=== PATIENT | female | born 1955 | race Caucasian/White ===

== ENCOUNTER → 2021-04-21 13:16 | Outpatient (BNVA) | payer MEDICARE, MEDICAID, SELFPAY | PROVIDERS: PCP Internal Medicine; Visit Provider Internal Medicine | DX: F10.10 Alcohol abuse, uncomplicated (principal); F03.90 Unspecified dementia, unspecified severity, without behavioral disturbance, psychotic disturbance, mood disturbance, and anxiety; F32.9 Major depressive disorder, single episode, unspecified | CPT/HCPCS: 80305; 99202 ==

== ENCOUNTER → 2021-09-28 09:17 | Outpatient (BNVA) | payer MEDICARE, MEDICAID, SELFPAY | PROVIDERS: PCP Internal Medicine; Visit Provider Psychiatry & Neurology Neurology | DX: F09 Unspecified mental disorder due to known physiological condition (principal); R26.9 Unspecified abnormalities of gait and mobility; Z91.81 History of falling | CPT/HCPCS: 99202 ==

== ENCOUNTER → 2021-11-09 14:42 | Outpatient (BNVA) | payer MEDICARE, MEDICAID, SELFPAY | PROVIDERS: PCP Internal Medicine; Visit Provider Nurse Practitioner Family | DX: M48.061 Spinal stenosis, lumbar region without neurogenic claudication (principal); R26.9 Unspecified abnormalities of gait and mobility; G89.4 Chronic pain syndrome; M25.551 Pain in right hip; M47.816 Spondylosis without myelopathy or radiculopathy, lumbar region; D17.79 Benign lipomatous neoplasm of other sites; Z91.81 History of falling | CPT/HCPCS: 99202 ==

== ENCOUNTER → 2022-03-09 15:03 | Outpatient (BNVA) | payer MEDICARE, MEDICAID, SELFPAY | PROVIDERS: PCP Internal Medicine; Visit Provider Nurse Practitioner Family | DX: M25.551 Pain in right hip (principal); M47.816 Spondylosis without myelopathy or radiculopathy, lumbar region; M48.061 Spinal stenosis, lumbar region without neurogenic claudication; G89.4 Chronic pain syndrome; E11.40 Type 2 diabetes mellitus with diabetic neuropathy, unspecified | CPT/HCPCS: 99212 ==

== ENCOUNTER 2022-03-23 11:00 | Outpatient (RCR) | payer MEDICARE, MEDICAID, SELFPAY ==
--- NOTE | 2021-12-11 12:25 | MHC.PT.EP ---
[facility] [place] [facility] [place] [facility] [place] [facility] [address] Loren Griffin [address] [phone] F: [phone] F: [phone] F: [phone] F: [phone] Physical Therapy Plan of Care Date of Evaluation: Date of Surgery: Diagnosis: gait disorder, falls, diabetic neuropathy lumbar spinal stenosis Assessment: 66 y/o female referred to PT with gait disorder, lumbar stenosis, falls, and diabetic neuropathy. Of note, PMH significant for COPD, HTN, DM, neuropathy, stenosis. She is awaiting a consult with neurosurgeon for lumbar spine. Currently she has pain and difficulty with walking, standing, learning manager, sleeping, and stairs. She tends to lose balance on stairs doing down. She just got a cane, but has not used it yet. Examination shows decreased lumbar and hip AROM, decreased LE/core strength, impaired balance, impaired gait pattern, and lacks foot clearance descending stairs. Recommend PT 2x/week for 5 weeks to address impairments, implement HEP, and optimize functional mobility. Educated pt on safety with dsecending stairs using rail and making sure she clears step fully. Frequency and Duration: The patient will be seen 2x/week for 5 weeks Short Term Goals: 3 weeks Compliant with HEP Pt will demonstrate improve stair navigation with clearing steps on descent Fci Goals: 5 weeks I with HEP and self management of sx Pt will improve B LE strength to 4/5 throughout to facilitate stairs Pt will demonstrate safety and appropriate use of assistive device with gait Treatment Plan: Modalities to reduce pain, spasms and effusion. Manual therapy to restore motion and function. Therapeutic exercise to improve strength and flexibility. Neuromuscular re-education for posture and balance. Therapeutic activities to return to functional activities of daily living. Electronically signed by: Agnieszka nascimento PT Please sign and return to therapist. Thank you for your referral.
--- NOTE | 2022-04-26 08:47 | MHC.PT.DC ---
[facility] [place] Office [place] Office [place] Office [address] Loren Griffin 140 [facility] [phone] F: [phone] F: [phone] F: [phone] F: [phone] Physical Therapy Discharge Report Diagnosis: gait disorder, falls, diabetic neuropathy lumbar spinal stenosis Date of Surgery: Date of Evaluation: 12/11/21 Date of Discharge: 04/26/22 Treatments to Date: 12 Cancellations to Date: 8 No Shows to Date: 2 Discharge Status: Improved Function Independent with HEP Discharge Summary: Pt has made gradual progress with strength, balance, and functional mobility. She has been limited by R hip pain and is going to have a cortisone injection. At this time, d/c to I HEP Electronically signed by: Agnisezka Squires PT Please sign and return to therapist. Thank you for your referral.
== END 2022-04-26 08:47 | disposition home or self-care (01) ==
LOC: HO.PTCHIC 11:00
PROVIDERS: PCP Internal Medicine; Visit Provider Psychiatry & Neurology Neurology
DX: M48.061 Spinal stenosis, lumbar region without neurogenic claudication (principal); R26.9 Unspecified abnormalities of gait and mobility; E11.40 Type 2 diabetes mellitus with diabetic neuropathy, unspecified; W19.XXXA Unspecified fall, initial encounter
CPT/HCPCS: 97110; 97112; 97162; 97530

== ENCOUNTER 2022-03-30 06:14 | Outpatient (REF) | payer MEDICARE, MEDICAID, SELFPAY ==
--- NOTE | ~2022-03-30 | FL_ITS ---
EXAMINATION: XR FLUOROSCOPY WITH IMAGES CLINICAL INFORMATION: Right hip pain. COMPARISON: None. TECHNIQUE: Fluoroscopy Supervised By: Dr. Sergio Wagner. Fluoroscopy Time: 0.1 minutes. Cumulative Dose: 4.47 mGy. DAP: 1.18 Gy-cm2. Images: 1. FINDINGS: Images demonstrate needle overlying the superior lateral aspect of the right hip joint with some contrast seen within the hip joint. FL/FL guidance in treatment room IMPRESSION: Fluoroscopy for pain management procedure.
== END 2022-03-30 06:15 | disposition home or self-care (01) ==
LOC: CF 06:14
PROVIDERS: Visit Provider Anesthesiology
DX: M25.551 Pain in right hip (principal); M47.816 Spondylosis without myelopathy or radiculopathy, lumbar region; M48.061 Spinal stenosis, lumbar region without neurogenic claudication; E11.40 Type 2 diabetes mellitus with diabetic neuropathy, unspecified; G89.4 Chronic pain syndrome
CPT/HCPCS: 20610; J3301

== ENCOUNTER → 2022-05-18 11:41 | Outpatient (BNVA) | payer MEDICARE, MEDICAID, SELFPAY | PROVIDERS: PCP Internal Medicine; Visit Provider Nurse Practitioner Family | DX: M25.551 Pain in right hip (principal); M47.816 Spondylosis without myelopathy or radiculopathy, lumbar region; M48.061 Spinal stenosis, lumbar region without neurogenic claudication; E11.40 Type 2 diabetes mellitus with diabetic neuropathy, unspecified; G89.4 Chronic pain syndrome | CPT/HCPCS: 99212 ==

== ENCOUNTER 2022-05-19 10:35 | Outpatient (REF) | payer MEDICARE, MEDICAID, SELFPAY ==
[2022-05-19 11:09] LABS: MANUAL DIFF FLAG NO
--- NOTE | 2022-05-19 11:10 | ECG_ITS ---
Test Reason : F10.20 Blood Pressure : / mmHG Vent. Rate : 076 BPM Atrial Rate : 076 BPM P-R Int : 142 ms QRS Dur : 088 ms QT Int : 400 ms P-R-T Axes : 072 059 061 degrees QTc Int : 450 ms Normal sinus rhythm Normal ECG No previous ECGs available Referred By: Piper Angelo Electronically Signed By:CARLITOS HILL
[2022-05-19 12:23] LABS: Basophils Absolute Auto 0.1 X10*3/uL (0.0-0.2); Basophils Percent Auto 0.7 % (0-2); Eosinophils Absolute Auto 0.2 X10*3/uL (0.0-0.4); Eosinophils Percent Auto 2.8 % (0-4); Hematocrit 39.2 % (37.0-47.0); Hemoglobin 12.9 g/dl (12.0-16.0); Imm Gran Abs Auto 0.04 X10*3/uL (0.00-0.03); Imm Gran Pct Auto 0.5 % (0.0-0.4); Lymphocytes Absolute Auto 2.9 X10*3/uL (1.2-4.9); Lymphocytes Percent Auto 35.9 % (20-40); Mean Corpuscular HGB Conc 32.9 g/dl (31.0-35.0); Mean Corpuscular Hemoglobin 33.1 pg (27.0-33.0); Mean Corpuscular Volume 100.5 fL (80.0-98.0); Mean Platelet Volume 9.2 fL (9.4-12.3); Monocytes Absolute Auto 0.6 X10*3/uL (0.1-1.2); Monocytes Percent Auto 6.9 % (2-11); Neutrophils Absolute Auto 4.3 x10*3/uL (2.0-8.3); Neutrophils Percent Auto 53.2 % (45-73); Platelet Count 395 X10*3/uL (160-400); Red Cell Distribution Width 12.5 % (11.0-16.0); White Blood Count 8.1 X10*3/uL (4.8-10.8)
[2022-05-19 12:55] LABS: Alanine Aminotransferase 15 U/L (0-31); Albumin Level 4.5 g/dL (3.5-5.0); Alkaline Phosphatase 63 U/L (39-117); Anion Gap 13 (12-20); Aspartate Amino Transferase 17 U/L (5-31); Bilirubin Direct < 0.2 mg/dL (0.0-0.5); Bilirubin Total 0.3 mg/dL (0.0-1.0); Blood Urea Nitrogen 11 mg/dL (9-16); Calcium 9.6 mg/dL (8.4-10.2); Carbon Dioxide 28 mmol/L (22-29); Chloride 107 mmol/L (96-108); Cholesterol 145 mg/dL; Estimated Glomerular Filt Rate > 60; Glucose Random 98 mg/dL (60-115); HDL Cholesterol 58 mg/dL; LDL Cholesterol Calculated 72 mg/dl; Potassium 4.4 mmol/L (3.3-5.1); Sodium 144 mmol/L (135-145); Total Protein 6.9 g/dL (6.5-8.0); Triglycerides 76 mg/dL
== END 2022-05-19 10:36 | disposition home or self-care (01) ==
LOC: HO.LAB 10:35
PROVIDERS: Absent Provider Internal Medicine; PCP Internal Medicine; Visit Provider Psychiatry & Neurology Psychiatry
DX: F10.20 Alcohol dependence, uncomplicated (principal); F41.8 Other specified anxiety disorders; E78.00 Pure hypercholesterolemia, unspecified; F33.2 Major depressive disorder, recurrent severe without psychotic features; Z79.899 Other long term (current) drug therapy
CPT/HCPCS: 36415; 80048; 80061; 80076; 84443; 85025; 93005

== ENCOUNTER → 2022-05-20 10:36 | Outpatient (BNVA) | payer MEDICARE, MEDICAID, SELFPAY | PROVIDERS: PCP Internal Medicine; Visit Provider Psychiatry & Neurology Neurology | DX: F10.20 Alcohol dependence, uncomplicated (principal); R26.9 Unspecified abnormalities of gait and mobility; F17.210 Nicotine dependence, cigarettes, uncomplicated; Z91.81 History of falling | CPT/HCPCS: 99212 ==

== ENCOUNTER 2022-07-05 14:00 | Outpatient (RCR) | payer MEDICARE, MEDICAID, SELFPAY ==
--- NOTE | 2022-06-21 11:18 | HO.PS.ADMBH ---
HPI Date of Service: 06/21/22 Chief Complaint: anxiety,depression,AUD Sources of Information: patient interviewed, chart reviewed and crisis/core team assessment reviewed HPI Medical Problems Affecting Mental Status: Yes (dementia) Narrative: Patient is a 67-year-old female, referred to [facility] by her psychiatrist at [facility]. History of AUD, major depressive disorder, SHIMA, 0UD, cognitive disorder, hypothyroidism, cardiomyopathy, COPD, lumbar spinal stenosis, diabetes. Was hospitalized at [facility] 10 days due to medical detox from alcohol. She is unable to remember details regarding this. Has long history alcohol use disorder. Lived in [place] for 20 years, recently moved back to this area 1 and half years ago. States at that time she had a breakdown, and her son came down to get her. She describes a breakdown as ?I drank too much I could not do anything anymore ?. Resides with her son, his girlfriend, and several other people. Describes her son as controlling, not supportive. Reports there is also large amounts of alcohol in the home. Endorses current symptoms of depression, including feeling hopeless and helpless, decreased appetite, anhedonia, disrupted sleep, guilt, low self-esteem. Passive SI intermittent, no intent or plan. States that she feels safe today. Currently sees Dr. Angelo, and has a follow-up appointment scheduled with her in several weeks. Past Psychiatric History: [facility] and [facility] in summer 2021 [facility] detox X 10 days, in April 2022. No psych IP, no PHP Med trials: Prozac, Paxil, cannot recall names of others. Psychiatrist Dr. Angelo through [facility] Therapist left 3 weeks ago, waiting for new on through [facility] Medical Evaluation Reviewed: Yes Multiple chronic medical issues [facility] Medical History Alcohol abuse Anxiety Asthma Cardiomyopathy Combined hyperlipidemia COPD (chronic obstructive pulmonary disease) Depression Diabetes Diabetic neuropathy Fatigue HTN (hypertension) Hyperlipidemia Hypothyroidism Lumbar spinal stenosis Panic attacks Surgical History H/O hernia repair Family History: Several paternal uncles, psychiatric illness, AUD. Parents drank. Social History: Raised by both parents, has 1 sister, 2 brothers. Graduated high school. at age 19, had 2 children, . Lived in [place] for over 20 years, moved back to this area 1 and half years ago. Currently lives with 1 son, his girlfriend, and several other people. Unemployed, on disability. Substance History: Remote History opioid use disorder. Longstanding alcohol dependence, detox/CSS in 2021, most recent detox 04/2022 at [facility]. Currently prescribed naltrexone. Trauma History: denies Meds/Allergies Meds Home Medications Medication Instructions Recorded Confirmed Type albuterol sulfate 90 mcg/actuation 2 puff inhalation Q6H PRN 04/21/21 05/20/22 History aerosol inhaler magnesium oxide 500 mg capsule 500 mg PO DAILY 04/21/21 05/20/22 History montelukast 10 mg tablet 10 mg PO BEDTIME 04/21/21 05/20/22 History (Singulair) roflumilast 500 mcg tablet 500 mcg PO DAILY 04/21/21 05/20/22 History (Daliresp) memantine 10 mg tablet (Namenda) 10 mg PO BID 09/28/21 05/20/22 History trazodone 50 mg tablet 50 mg PO BEDTIME PRN 09/28/21 05/20/22 History acetaminophen 650 mg 1,300 mg PO TID 11/09/21 05/20/22 History tablet,extended release (Tylenol Arthritis Pain) atorvastatin 40 mg tablet 40 mg PO DAILY 11/09/21 05/20/22 History cholecalciferol (vitamin D3) 125 125 mcg PO DAILY 11/09/21 05/20/22 History mcg (5,000 unit) capsule epinephrine 0.3 mg/0.3 mL 0.3 mg IM Q4H PRN 11/09/21 05/20/22 History injection, auto-injector (EpiPen) fluticasone fur. 100 mcg-umeclid 1 inh inhalation DAILY 11/09/21 05/20/22 History 62.5 mcg-vilant 25 mcg inhalat.powder (Trelegy Ellipta) furosemide 40 mg tablet (Lasix) 40 mg PO DAILY 11/09/21 05/20/22 History gabapentin 300 mg capsule 300 mg PO TID 11/09/21 05/20/22 History hydroxyzine HCl 50 mg tablet 50 mg PO BEDTIME 11/09/21 05/20/22 History metoprolol succinate 50 mg 50 mg PO DAILY 11/09/21 05/20/22 History tablet,extended release 24 hr omeprazole 20 mg capsule,delayed 20 mg PO DAILY 11/09/21 05/20/22 History release rivastigmine tartrate 6 mg capsule 6 mg PO BID 11/09/21 05/20/22 History venlafaxine 150 mg 150 mg PO BEDTIME 11/09/21 05/20/22 History capsule,extended release 24 hr (Effexor XR) kk-jcx-xemti lipoic tab PO 05/18/22 05/18/22 History grcq-DS-bwwdzukycsfzw 100 mg-0.8mg -10 mg tablet Allergies Allergies Allergy/AdvReac Type Severity Reaction Status Date / Time Penicillins Allergy Severe Rash Verified 05/20/22 10:41 PORTER Inhibitors Allergy Anaphylaxis Verified 05/20/22 10:41 nickel Allergy Rash Verified 06/21/22 13:32 bee stin Allergy Anaphylaxis Uncoded 05/20/22 10:41 Mental Status Exam Mental Status Exam Narrative: Well developed, in NAD. Slow ambulation. No tics or tremors, no abnormal movements. No perceptual disturbances. Overweight. Appears age. Patient Appearance: Appropriate Patient Orientation: Person, Place, Time and Situation Level of Consciousness: Appropriate Patient Behavior: Appropriate, Cooperative, Anxious, Good Eye Contact and Crying (Tearful during interview) Mood Description: Depressed and Anxious Affect Description: Depressed and Anxious Patient Cognition Impaired: Yes Ability to Follow Directions: Good Speech Pattern: Clear, Coherent and Soft-Spoken Memory Description: Normal for Patient Hallucinations: None Delusions: Not Present Thought Process: Intact Thought Content: positive for Suicidal Ideation (Passive, no plan or intent.) Depressive Symptoms: Increased Anxiety, Difficulty Sleeping, Changes in Appetite (decreased), Crying Spells, Loss of Int. in Activity, Hopelessness, Feelings of Guilt, Unhappiness, Increased Fatigue, Thoughts of /Suicide, Low Self Esteem, Loss of Energy and Difficulty Concentrating Judgement: Fair Assessment & Plan Assessment & Plan (1) Depression, major, severe recurrence: Status: Acute Code(s): F33.2 - Major depressive disorder, recurrent severe without psychotic features Assessment and Plan: 67-year-old female, referred to [facility] by her outpatient psychiatrist at [facility]. History of multiple medical issues, including dementia. Also has psych history of alcohol dependence, major depressive disorder, generalized anxiety disorder, opioid use disorder by history. Last drink was 04/23/2022. Currently prescribed hydroxyzine for anxiety, trazodone for sleep, venlafaxine for depression /anxiety, and naltrexone. States that her son and his girlfriend control her medications at this time. Reports current symptoms are being helped somewhat by her medications, but is also looking for structure and support. Has not participated in PHP in the past, was not sure what the focus of groups are. Is not attending any type of support groups for her alcohol use disorder. We discussed various options, including AA, [facility], and Recovery coaching. She was provided with printed materials, and stated that she would think about these options. (2) Alcohol dependence, uncomplicated: Status: Acute Code(s): F10.20 - Alcohol dependence, uncomplicated (3) Generalized anxiety disorder: Status: Acute Code(s): F41.1 - Generalized anxiety disorder Plan 1. Continue with current PHP plan of care. 2. Continue with medications as currently prescribed by outpatient psychiatrist. 3. Offer recovery support, harm reduction / risk reduction. 4. Follow-up as per protocol. Patient educated on: diagnosis, medication risk/benefits, substance abuse and therapeutic strategies Informed Consent: understands Reason for continued partial hosp. stay Substantial Risk for: harm to others, inability to function, rapid decompensation and med/psych decompensation Certification I certify that partial hospital treatment is medically necessary due to the symptoms and problems resulting from the patient's mental illness and the failure to treat the patient at the partial hospital level of care would likely result in the patient requiring inpatient psychiatric care which could not be prevented at a less intensive level of care. Time Spent With Patient Time: Total time managing care of this patient today __50__ minutes.
[2022-06-21 13:13] VITALS: BP 92/52; PULSE 96; TEMP 37.3
--- NOTE | 2022-06-21 14:42 | PC.NURSE ---
Addendum entered by Talita yAers RN 06/21/22 14:53: Medications reconciled with patient and the medication list she brought in and her pharmacy. Original Note: I called Talia who gave me verbal permission to talk to her son's GF Muna regarding her medication as she administer's Talia's medications. She gave me Muna's telephone number [phone]. I called Muna and let her know Talia's BP running low 92/52 P96 and that she may be dehydrated. I asked if she could f/u calling Talia's PCP with her before administration of her Lasix to see if they want to hold dose for today d/t low BP. Muna also aware that patient to increase fluid intake. Muna stated she would f/u .
--- NOTE | 2022-06-21 15:17 | PC.NURSE ---
Addendum entered by Talita Ayers RN 06/21/22 15:18: I was able to confirm Vitamin D 3 dose and Magnesium. Original Note: Asked patient to bring in her Vitamins to confirm doses. Patient stated she has prescriptions for the Vitamins however pharmacy stated she does not.
[2022-06-21 16:14] LABS: Amphetamine Screen Urine Not Detected (Not Detect); Barbiturates, Urine Not Detected (Not Detect); Benzodiazepines Screen Urine Not Detected (Not Detect); Cannabinoid Screen Urine Not Detected (Not Detect); Cocaine Screen Urine Not Detected (Not Detect); Fentanyl, urine POSITIVE (Not Detect); Opiate Screen Urine Not Detected (Not Detect); Phencyclidine Screen Urine Not Detected (Not Detect)
[2022-06-22 09:04] VITALS: BP 96/52; PULSE 64
[2022-06-24 13:20] VITALS: BP 94/58; PULSE 72
[2022-06-24 13:21] VITALS: BP 90/58; PULSE 72
--- NOTE | 2022-06-24 15:41 | HO.PHP ---
Clients case was reviewed and opened today in treatment team.
--- NOTE | 2022-06-28 12:40 | HO.PHPPROGNO ---
Subjective Subjective Date of Service: 06/28/22 Reason For Visit: anxiety,depression,AUD Medical Problems Affecting Mental Status: Yes (dementia) Interim History: Describes mood as ?up and down ?. Reports increased depression at times, increased anxiety. States that she can feel an increased heart rate at times, believes this may be partially physical, as she has chronic pain. Anxious regarding upcoming surgery. Current blood pressure during this visit is 118/78, pulse 72. Remains abstinent from alcohol use since April 23. In does report she has been having cravings, trying to use distraction techniques. Spending time with her 3-year-old grandson, which helps. Passive SI intermittent, no intent or plan at this time. States that she does feel safe. Not attending alcoholics anonymous, states that she would like to try them. Using nicotine gum to help cut down smoking, reports that it is helping. Interested in a refinery operator vapor recovery unit referral. Medication Compliance: Yes Side effects from medications: No Attending Groups: Yes Review of Systems Acute medical concerns: No Medical Review of Systems: unchanged Review of Systems Review of Systems chronic pain. Yes all other systems are reviewed and are negative Constitutional: Reports no additional constitutional complaints Mental Status Exam Mental Status Exam Narrative: Anxious, depressed mood/affect. Slow ambulation, uses cane. No tics or tremors, no abnormal movements. No perceptual disturbances. Patient Appearance: Appropriate Patient Orientation: Person, Place, Time and Situation Level of Consciousness: Appropriate Patient Behavior: Appropriate, Cooperative, Anxious and Good Eye Contact Mood Description: Depressed and Anxious Affect Description: Depressed and Anxious Patient Cognition Impaired: Yes Ability to Follow Directions: Good Speech Pattern: Clear and Coherent Memory Description: Normal for Patient (dementia dx, has difficulty at times) Hallucinations: None Delusions: Not Present Thought Process: Intact Thought Content: positive for Preoccupation (focused on upcoming surgery, and alcohol cravings) and positive for Suicidal Ideation (Passive, no plan or intent.) Depressive Symptoms: Increased Anxiety, Difficulty Sleeping, Loss of Int. in Activity, Feelings of Guilt, Unhappiness, Increased Fatigue, Thoughts of /Suicide, Low Self Esteem, Loss of Energy and Difficulty Concentrating Judgement: Fair Assessment & Plan Assessment & Plan (1) Depression, major, severe recurrence: Status: Acute Code(s): F33.2 - Major depressive disorder, recurrent severe without psychotic features Assessment and Plan: Describes mood as ?up and down ?. Reports increased depression, increased anxiety. States that she can feel an increased heart rate at times, believes this may be partially physical, as she has chronic pain. Anxious regarding upcoming surgery. States she is concerned about the pain, catastrophizing at times. We reviewed surgery, possibility that it may actually alleviate pain. Remains abstinent from alcohol use since April 23. In does report she has been having cravings, trying to use distraction techniques. Spending time with her 3-year-old grandson, which helps. States that things are good in the home, and that she feels supported regarding mental health and substance use recovery. Passive SI intermittent, no intent or plan at this time. States that she does feel safe. Not attending alcoholics anonymous, states that she would like to try them. Reports that people in groups have been talking about them, and how they find them helpful. Patient provided with phone number and web site for local enter group. States that she thinks she would like to try meeting this week. Finding naltrexone helpful in reducing cravings overall. States that she thinks about drinking when she is experiencing anxiety. We discussed coping skills, also possibility of a refinery operator vapor recovery unit. She states that she is interested in a referral for refinery operator vapor recovery unit. Using nicotine gum to help cut down smoking, reports that it is helping. Satisfied with her current medications, no changes requested. Reports that she does not need refills at this time. She is still waiting to hear from [facility] regarding a new therapist. Has an appointment with her outpatient psychiatrist after surgery later this month. (2) Alcohol dependence, uncomplicated: Status: Acute Code(s): F10.20 - Alcohol dependence, uncomplicated (3) Generalized anxiety disorder: Status: Acute Code(s): F41.1 - Generalized anxiety disorder Plan 1. Continue with current [facility] plan of care. 2. Continue with current medications as prescribed by outpatient psychiatrist. 3. Continue to support patient in both recovery from psychiatric illness and alcohol use disorder. 4. Place refinery operator vapor recovery unit referral. 5. Follow-up as per protocol. Patient educated on: diagnosis, medication risk/benefits, substance abuse and therapeutic strategies Informed Consent: understands Reason for contiued partial hosp. stay Substantial Risk for: harm to self, inability to function, rapid decompensation and med/psych decompensation Certification I certify that partial hospital treatment is medically necessary due to the symptoms and problems resulting from the patient's mental illness and the failure to treat the patient at the partial hospital level of care would likely result in the patient requiring inpatient psychiatric care which could not be prevented at a less intensive level of care. Total time managing care of this patient today __20__ minutes. Discharge Plan Discharge Attending provider: Biju Renee Medications: New nicotine (polacrilex) [Nicorette] 2 mg gum 2 mg buccal Q2H PRN (Reason: as needed for nicotine cravings) Qty: 20 0RF No Action (DME) cane Device See Rx Instructions .Route Qty: 1 0RF Rx Instructions: As directed diclofenac sodium 1 % gel See Rx Instructions .ROUTE .COMPLEX Qty: 100 3RF Dose Instruction: APPLY 2 G TOPICALLY 4 TIMES A DAY FOR PAIN APPLY TO SINGLE ELBOW, WRIST OR HAND FOR HAND INCLUDES PALM/FINGERS/BACK OF HAND Patient Comments: Patient stated she takes PRN Rx Instructions: APPLY 2 G TOPICALLY 4 TIMES A DAY FOR PAIN APPLY TO SINGLE ELBOW, WRIST OR HAND FOR HAND INCLUDES PALM/FINGERS/BACK OF HAND celecoxib 50 mg capsule 50 mg PO BID gabapentin 300 mg Capsule 600 mg PO BEDTIME hydroxyzine pamoate 25 mg capsule 25 mg PO QID PRN (Reason: anxiety) memantine 10 mg tablet 10 mg PO DAILY potassium chloride 20 mEq tablet extended release 20 meq PO DAILY venlafaxine 75 mg capsule,extended release 24hr 75 mg PO DAILY trazodone 100 mg tablet 100 - 200 mg PO BEDTIME PRN (Reason: insomnia) naltrexone 50 mg tablet 50 mg PO DAILY zv-txp-gdexzcb poxf-SJ-zymeuep 100-0.8-10 mg tablet PO Daliresp 500 mcg tablet 500 mcg PO DAILY albuterol sulfate 90 mcg/actuation HFA aerosol inhaler 2 puff inhalation Q6H PRN (Reason: Shortness Of Breath) montelukast [Singulair] 10 mg tablet 10 mg PO BEDTIME magnesium oxide 500 mg capsule 500 mg PO DAILY venlafaxine [Effexor XR] 150 mg capsule,extended release 24hr 150 mg PO BEDTIME Rx Instructions: Take with 75 mg tab gabapentin 300 mg capsule 300 mg PO BID Rx Instructions: Take one tab before breakfast and one tab before lunch. Trelegy Ellipta 100-62.5-25 mcg blister with device 1 inh inhalation DAILY cholecalciferol (vitamin D3) 125 mcg (5,000 unit) capsule 125 mcg PO DAILY Patient Comments: Confirmed with patient and patient's medication list. rivastigmine tartrate 6 mg capsule 6 mg PO BID epinephrine [EpiPen] 0.3 mg/0.3 mL auto-injector 0.3 mg IM Q4H PRN (Reason: Anaphylaxis) atorvastatin 40 mg tablet 40 mg PO BEDTIME omeprazole 20 mg capsule,delayed release(DR/EC) 20 mg PO DAILY metoprolol succinate 50 mg tablet extended release 24 hr 50 mg PO DAILY furosemide [Lasix] 40 mg tablet 40 mg PO DAILY
--- NOTE | 2022-07-01 08:30 | PC.NURSE ---
Spoke to Talia regarding positive OROPEZA for Fentanyl. She stated she has not used any type of opiate. Reports being sober from ETOH x 3 month and pain medications for a year. Chel Hoyos CNP is aware. [facility] staff is aware.
--- NOTE | 2022-07-05 11:59 | HO.PHPPROGNO ---
Subjective Subjective Date of Service: 07/05/22 Reason For Visit: anxiety,depression,AUD Medical Problems Affecting Mental Status: No Interim History: Continues with depressed, anxious mood and affect. Remains abstinent x2 months from alcohol, finding naltrexone helpful. Fluctuating appetite, some sleep difficulties. Using Nicorette gum, currently only smoking several cigarettes per day. Intermittent passive SI, no intent or plan. Last day today, due to change in schedule of upcoming surgeries. Feels stable at this time, however would like to return after recovery from surgeries. Medication Compliance: Yes Side effects from medications: No Attending Groups: Yes Review of Systems Acute medical concerns: Yes Has upcoming scheduled neck and back surgery. Medical Review of Systems: unchanged Review of Systems Review of Systems Yes all other systems are reviewed and are negative Constitutional: Reports no additional constitutional complaints Mental Status Exam Mental Status Exam Narrative: Anxious, depressed mood/affect. Slow ambulation, uses cane. No tics or tremors, no abnormal movements. No perceptual disturbances. Patient Appearance: Appropriate Patient Orientation: Person, Place, Time and Situation Level of Consciousness: Appropriate Patient Behavior: Appropriate, Cooperative, Anxious and Good Eye Contact Mood Description: Depressed and Anxious Affect Description: Depressed and Anxious Patient Cognition Impaired: Yes Ability to Follow Directions: Good Speech Pattern: Clear and Coherent Memory Description: Normal for Patient (dementia dx, has difficulty at times) Hallucinations: None Delusions: Not Present Thought Process: Intact Thought Content: positive for Suicidal Ideation (Passive, no plan or intent.) Depressive Symptoms: Increased Anxiety, Difficulty Sleeping, Unhappiness, Thoughts of /Suicide and Low Self Esteem Judgement: Good Assessment & Plan Assessment & Plan (1) Depression, major, severe recurrence: Status: Acute Code(s): F33.2 - Major depressive disorder, recurrent severe without psychotic features Assessment and Plan: Continues with depressed, anxious mood and affect. Taking medications as prescribed, finds the effexor somewhat helpful. Express concern over upcoming surgery, reports that she is nervous about sedation, as well as recovery. Afterwards. We discussed possibility of short-term rehab after her surgery, suggested she inquire about this at her surgeon appointment this afternoon. Remains abstinent x2 months from alcohol, finding naltrexone helpful. Has not yet heard from community living coach after referrals placed last week. Expressed hope for future, states that she would like to attend in alcoholics anonymous meeting, and that her son has told her he would bring her when she is ready. Fluctuating appetite, some sleep difficulties. Reports some of the sleep issues are related to anxiety about upcoming surgery, also is new in sobriety. Using Nicorette gum, currently only smoking several cigarettes per day. Intermittent passive SI, no intent or plan. Reports that she has had a plan in the past, but does not have any thoughts of harming herself or others in any way at this time, and that she feels safe. She was provided with phone numbers for suicide hotline, crisis. Last day today, due to change in schedule of upcoming surgeries. Feels stable at this time, however would like to return after recovery from surgeries. Discussed process of readmission, she was informed to contact program principal secretary if she wishes to return to program. (2) Alcohol dependence, uncomplicated: Status: Acute Code(s): F10.20 - Alcohol dependence, uncomplicated Assessment and Plan: Patient was provided information regarding AA, other forms of recovery support, and information for CCC. (3) Generalized anxiety disorder: Status: Acute Code(s): F41.1 - Generalized anxiety disorder Plan 1. Patient appears stable for discharge from [facility] at this time. 2. Patient to follow-up with outpatient providers going forward. Patient educated on: diagnosis, medication risk/benefits, substance abuse and therapeutic strategies Informed Consent: understands Reason for contiued partial hosp. stay Substantial Risk for: stable for discharge Certification I certify that partial hospital treatment is medically necessary due to the symptoms and problems resulting from the patient's mental illness and the failure to treat the patient at the partial hospital level of care would likely result in the patient requiring inpatient psychiatric care which could not be prevented at a less intensive level of care. Total time managing care of this patient today _25__ minutes. Discharge Plan Discharge Attending provider: Biju Renee Medications: New nicotine (polacrilex) [Nicorette] 2 mg gum 2 mg buccal Q2H Qty: 110 0RF No Action (DME) cane Device See Rx Instructions .Route Qty: 1 0RF Rx Instructions: As directed diclofenac sodium 1 % gel See Rx Instructions .ROUTE .COMPLEX Qty: 100 3RF Dose Instruction: APPLY 2 G TOPICALLY 4 TIMES A DAY FOR PAIN APPLY TO SINGLE ELBOW, WRIST OR HAND FOR HAND INCLUDES PALM/FINGERS/BACK OF HAND Patient Comments: Patient stated she takes PRN Rx Instructions: APPLY 2 G TOPICALLY 4 TIMES A DAY FOR PAIN APPLY TO SINGLE ELBOW, WRIST OR HAND FOR HAND INCLUDES PALM/FINGERS/BACK OF HAND celecoxib 50 mg capsule 50 mg PO BID gabapentin 300 mg Capsule 600 mg PO BEDTIME hydroxyzine pamoate 25 mg capsule 25 mg PO QID PRN (Reason: anxiety) memantine 10 mg tablet 10 mg PO DAILY potassium chloride 20 mEq tablet extended release 20 meq PO DAILY venlafaxine 75 mg capsule,extended release 24hr 75 mg PO DAILY trazodone 100 mg tablet 100 - 200 mg PO BEDTIME PRN (Reason: insomnia) naltrexone 50 mg tablet 50 mg PO DAILY [id number] [id number] 100-0.8-10 mg tablet PO Daliresp 500 mcg tablet 500 mcg PO DAILY albuterol sulfate 90 mcg/actuation HFA aerosol inhaler 2 puff inhalation Q6H PRN (Reason: Shortness Of Breath) montelukast [Singulair] 10 mg tablet 10 mg PO BEDTIME magnesium oxide 500 mg capsule 500 mg PO DAILY venlafaxine [Effexor XR] 150 mg capsule,extended release 24hr 150 mg PO BEDTIME Rx Instructions: Take with 75 mg tab gabapentin 300 mg capsule 300 mg PO BID Rx Instructions: Take one tab before breakfast and one tab before lunch. Trelegy Ellipta 100-62.5-25 mcg blister with device 1 inh inhalation DAILY cholecalciferol (vitamin D3) 125 mcg (5,000 unit) capsule 125 mcg PO DAILY Patient Comments: Confirmed with patient and patient's medication list. rivastigmine tartrate 6 mg capsule 6 mg PO BID epinephrine [EpiPen] 0.3 mg/0.3 mL auto-injector 0.3 mg IM Q4H PRN (Reason: Anaphylaxis) atorvastatin 40 mg tablet 40 mg PO BEDTIME omeprazole 20 mg capsule,delayed release(DR/EC) 20 mg PO DAILY metoprolol succinate 50 mg tablet extended release 24 hr 50 mg PO DAILY furosemide [Lasix] 40 mg tablet 40 mg PO DAILY Stand Alone Forms: Patient Portal Discharge page Patient Education: Depression (DC), Alcohol Use Disorder (DC)
== END 2022-07-05 23:59 | disposition home or self-care (01) ==
LOC: HO.PHPA 14:00
PROVIDERS: Nurse Practitioner Psychiatric/Mental Health; Visit Provider Psychiatry & Neurology Psychiatry
DX: F33.2 Major depressive disorder, recurrent severe without psychotic features (principal); F41.1 Generalized anxiety disorder; F10.20 Alcohol dependence, uncomplicated
CPT/HCPCS: 80307; 90791; 90853

== ENCOUNTER 2022-12-30 09:58 | Outpatient (AMB) | payer OTHER, SELFPAY ==
[2022-12-30 10:02] VITALS: BP 134/63; PULSE 86; O2SAT 96; BMI 27.0
--- NOTE | 2022-12-30 10:02 | A.OFFVIS_ITS ---
Intake Vital Signs 12/30/22 10:02 12/30/22 10:41 12/30/22 10:58 Height 5 ft 2 in Weight 147 lb 8 oz BMI 27.0 BP 134/63 133/89 150/101 H Blood Pressure Location Lt brachial Lt brachial Lt brachial Position Sitting Sitting Sitting Pulse 86 79 75 Pulse Source Pulse Oximeter Pulse Oximeter Pulse Oximeter Pulse Oximetry (%) 96 97 97 Oxygen Delivery Method Room Air Room Air Room Air Comment 15 mins after Qutenza application 30 mins after qutenza application Intake Visit Reasons: Qutenza DPN/LVM Intake Note: Pain today 08/30 [employer] Supervisor Required: No Accompanied by: Self / Same As Patient Allergies Penicillins Allergy (Severe, Verified 12/30/22 10:07) Rash PORTER Inhibitors Allergy (Verified 12/30/22 10:07) Anaphylaxis nickel Allergy (Verified 12/30/22 10:07) Rash bee stin Allergy (Uncoded 05/20/22 10:41) Anaphylaxis HPI HPI Comments History of Present Illness Details Patient presents for application of capsaicin 8% topical patch for diabetic neuropathy in bilateral feet. She was last seen in April and reports undergoing cervical fusion in May which provides her 70% pain relief and right sided L2-L3 microdiscectomy with right sided lumbar decompression. She continues ongoing low back pain and rates it at 08/30. She sees Neurology Dr. Larose for cognitive disorder and was diagnosed with dementia over 3 years ago. Reports numbness, burning, hot, tingling in both feet, worse at night time. She currently resides in Assisted Living and is active with Physical Therapy who comes to her place. Patient takes gabapentin, Celebrex and extra strength Tylenol for her pain with partial relief. Denies any recent cough, cold, infection, fever or other significant changes in medical history since last office visit. PRIOR: Patient presents today for follow up status post right hip steroid injection on 03/30/[address] Wagner. She reports 80% pain relief for only 2 weeks and since then her symptoms are back to baseline with increased pain with weight bearing, changing positions, walking or getting her right leg out of car. She continues to report lower back pain that radiates to her right buttock, lateral right hip and into her right lower extremity in L4-L5 and periodically in L5-S1. Patient is awaiting back surgery with Dr. Tony. Patient reports she was admitted to [facility] with ETOH abuse and status post mechanical fall. She notes her pain has been exacerbated significantly. She is working with mental therapist for alcohol abuse, depression and anxiety and has not consume any alcohol for the past 2 weeks. Patient continues to smoke 2-3 cigarettes per day. She struggles with cognitive memory issues related to dementia. Patient reports occasional bladder incontinence related to urgency but denies any bowel incontinence or saddle anesthesia. Past Procedures: 03/30/22: Right intra-articular hip ster oid injection-80% pain relief for 2 weeks PRIOR: Patient returns today for follow up regarding worsening right sided lumbar radiculopathy in L5-S1 distribution and significant right hip pain. Reports bilateral feet chronic burning pain with numbness and tingling due to diabetes. Patient was initially seen in October and was sent for neurosurgical evaluation with Dr. Tony. Patient has been actively participating in physical therapy and made progress towards smoking cessation. Patient also reports she received right greater trochanter steroid injection through orthopedics in 2021 with no pain relief. She continues to have significant right groin and lateral hip pain with increase in pain with getting out of bed, shower or car or any movements. Tylenol, gabapentin and diclofenac gel has been minimally effective. Patient was reminded to complete right hip with pelvic view xray. We will proceed with right intra-articular hip steroid injection. Patient was recently re-evaluated by neurosurgery on 02/26/22 and they have plan for her to undergo Right sided L2-L3 microdiscectomy with right sided L3-L4, L4- L5, and L5-S1 decompression with Dr. Tony. Patient denies any fever, abdominal pain, bladder or bowel incontinence or saddle anesthesia. PRIOR: Patient is a 66 years old female presents today with chronic back pain with right sided radiculopathy and right hip pain. Reports chronic back pain for 12 years with previous neurosurgical evaluations and deemed non surgical in [place]. Patient moved [place] 1.5 years ago. Denies trauma or injury but had significant fall last January. Pain radiates from her lower back into her right lower extremity laterally and anteriorly with numbness and tingling in her toes. Patient describes pain as constant pounding, cramping, crushing, hot burning, tingling, stinging, shart, sore, hurting, aching, tiring, exhausting, suffocating, fearful, frightful, terrifying, punishing, piercing, tight, squeezing, and cold. She also reports significant right hip and groin pain while using RLE during getting in and out of bed or car, changing position from sitting to standing or climbing stairs. Back pain is aggravated by prolonged sitting, walking or standing. Patient reports frequent falls and gait disturbance with pain. She reports completing 10 sessions through [facility] and received right hip cortisone injections a few months ago with no improvement in her symptoms. Patient has been managing pain with Tylenol. She reports getting tramadol with most pain relief while living in [place]. I have informed patient that we do not offer opioid prescribing at this time. Patient denies any fever, chills, abdominal pain, bowel or bladder incontinence or saddle anesthesia. Ambulates with antalgic gait without assistive device and reports a cane has been ordered but has not received it yet. Patient denies previous spine surgery or injection and reports significant fall last January. Lumbar spine MRI was obtained following the fall is significant for multilevel moderate to severe central stenosis related to disc bulging, Modic changes about disc spaces caudally, midline disc herniation, increased multilevel epidural fat with potential cauda equina constriction at L4-L5 and significant facet hypertrophy at L5-S1 with marked formainal stenosis. Past medical history includes frontotemporal dementia, memory impairment, chronic fatigue, asthma, emphysema, depression, anxiety, panic attacks, diabetes, diabetic neuropathy, HNT, hyperlipidemia, hypothyroidism, carpal tunnel syndrome, cervical spondylosis, tremor, GERD, dilated cardiomyopathy, spinal stenosis of lumbar region. She drinks 3 cups of coffee daily, smokes tobacco 3 cigarettes per day and has 2-3 alcoholic drinks daily. Patient reports regular follow ups with her mental therapist and psychiatrist for alcohol dependence. FORMERLY [facility], [facility] Medical History Combined hyperlipidemia Hypothyroidism Cardiomyopathy Asthma COPD (chronic obstructive pulmonary disease) Fatigue Panic attacks Anxiety Depression Lumbar spinal stenosis Diabetic neuropathy Diabetes Alcohol abuse Hyperlipidemia HTN (hypertension) Surgical History H/O hernia repair Social History Household Members: Family Housing: House Alcohol intake: current Alcohol intake frequency: 3 or more drinks per day Alcohol type: hard liquor Patient Tobacco Use Status: Current everyday Tobacco user Tobacco use type: Cigarette Cigarettes Per Day: 3 Years Smoked: 40 Review of Systems Const All systems reviewed & are unremarkable except as noted in HPI and below Physical Exam Vital Signs: Last Vital Signs Pulse 79 12/30/22 10:41 BP 133/89 12/30/22 10:41 Pulse Ox 97 12/30/22 10:41 Oxygen Delivery Method Room Air 12/30/22 10:41 BMI result Body Mass Index 27.0 On exam today: Appears afebrile. Alert and oriented Mood and affect appropriate. Follows and participates in conversation appropriately. Respiratory effort is unlabored. Able to transition from sit to stand with assistance. Antalgic gait. Ambulates with bilaterally normal heel strike and toe off, reports imblance on the right. Back/Spine/Pelvis Cervical Spine: cervical muscular tenderness, Cervical spine scars present and No Cervical spine tenderness Thoracic/Lumbar Spine: thoracic and lumbar spine normal to inspection, Thoracic/lumbar spine scar(s), pain with thoraco-lumbar ROM, paraspinal muscle tenderness, No thoracic spinal tenderness and lumbar spinal tenderness at L4 and at L5 Extrem Other: There is a decreased sensation over the soles of the feet and toes. No soft tissue swelling or warmth. +2 pedal pulses bilaterally. General: Yes capillary refill normal, Yes no clubbing, cyanosis or edema and Yes no calf tenderness Office Procedures Topical Capsaicin Date 1:: 12/30/22 Laterality: Bilateral Location of left foot pain: Plantar and Dorsal Location of right foot pain: Plantar and Dorsal Quality of pain: Aching, Nagging, Burning, Numb-like and Tiring Details:: Two patches, 560 cm2 were utilized per each foot. EMLA Cream (lidocaine 2.5% and prilocaine 2.5%) was applied by patient prior to application of the patches. The patient tolerated the procedure well. Patient?s vitals signs remained stable throughout the procedure. Patient was able to complete the stipulated 30 minutes of the therapeutic application without any discomfort. Office Meds capsaicin-skin cleanser 8 % topical kit Performing Provider: NAKUL Todd Performing Location: [facility] Administered by: NAKUL Todd on 12/30/22 10:25 Dose Route Admin Location Dispensed Lot Number Expiration Date NDC Sheet Manufacturing Supervisor 4 ea topical [facility] ea [id number] 02/21/25 62571-818-06 [place] Assessment & Plan Assessment & Plan (1) Diabetic neuropathy: Code(s): E11.40 - Type 2 diabetes mellitus with diabetic neuropathy, unspecified (2) Chronic pain syndrome: Code(s): G89.4 - Chronic pain syndrome (3) Lumbar spondylosis: Code(s): M47.816 - Spondylosis without myelopathy or radiculopathy, lumbar region (4) Back pain with history of spinal surgery: Code(s): M54.9 - Dorsalgia, unspecified; Z98.890 - Other specified postprocedural states (5) History of fusion of cervical spine: Code(s): Z98.1 - Arthrodesis status Plan Patient is status post cervical fusion and back surgery in May and June [address] Tony with some residual symptoms in her lower back. We will request most recent follow up with her Neurosurgeon and surgeries reports for review. In meantime, she is undergoing PT at her Assisted Living facility. Patient is status post 1st round of application of topical capsaicin 8% for peripheral diabetic neuropathy in bilateral feet. Patient tolerated the procedure without significant discomfort with application of EMLA cream prior to the procedure. She was discharged home in stable condition with discharge instructions. All questions and concerns were answered and the patient agreed with the plan. Next Qutenza scheduled in 3 months. Follow up as needed. Greater than 46 minutes were spent in reviewing the record, seeing the patient, therapeutic application, documenting in the medical record and in coordination of the care. Orders: Orders AMB Capsaicin Patch - Practice Supplied Today E11.40 - Type 2 diabetes mellitus with diabetic neuropathy, unspecified Coding Level of Care Code Est Pt Level 5 (30148) Diagnoses Diabetic neuropathy E11.40 Chronic pain syndrome G89.4 Lumbar spondylosis M47.816 Back pain with history of spinal surgery M54.9; Z98.890 History of fusion of cervical spine Z98.1
[2022-12-30 10:41] VITALS: BP 133/89; PULSE 79; O2SAT 97
[2022-12-30 10:58] VITALS: BP 150/101; PULSE 75; O2SAT 97
== END 2022-12-30 11:07 | disposition home or self-care (01) ==
PROVIDERS: PCP Internal Medicine; Visit Provider Nurse Practitioner Family
DX: E11.40 Type 2 diabetes mellitus with diabetic neuropathy, unspecified (principal); G89.4 Chronic pain syndrome; M47.816 Spondylosis without myelopathy or radiculopathy, lumbar region; M54.9 Dorsalgia, unspecified; Z98.890 Other specified postprocedural states; Z98.1 Arthrodesis status
CPT/HCPCS: 17999; 99215

== ENCOUNTER → 2022-12-30 09:58 | Outpatient (BNVA) | payer OTHER, SELFPAY | PROVIDERS: PCP Internal Medicine; Visit Provider Nurse Practitioner Family | DX: E11.40 Type 2 diabetes mellitus with diabetic neuropathy, unspecified (principal); M47.816 Spondylosis without myelopathy or radiculopathy, lumbar region; M54.9 Dorsalgia, unspecified; G89.4 Chronic pain syndrome; Z98.890 Other specified postprocedural states; Z98.1 Arthrodesis status | CPT/HCPCS: 17999; 99212; J7336 ==